=== PATIENT | male | born 1960 | race Caucasian/White ===

== ENCOUNTER → 2018-02-11 | Outpatient (CLI) | payer OTHER ==
[~2018-02-11] MED LIST: FISH OIL; IBUP200T64 PO; MULT-516 PO
[2018-02-11 09:06] LABS: BASOPHILS # (AUTO) 0.05 x10^3/uL (0-0.1); BASOPHILS % (AUTO) 1 % (0-1); EOSINOPHILS % (AUTO) 3 % (1-7); LYMPHOCYTES % (AUTO) 29 % (22-44); MD NO; MEAN CORPUSCULAR HEMOGLOBIN 31.4 pg (27.5-34.5); MEAN CORPUSCULAR HGB CONC 33.9 g/dL (33.2-36.2); MEAN CORPUSCULAR VOLUME 92.5 fL (81-97); MEAN PLATELET VOLUME 7.8 fL (7.4-10.4); MONOCYTES # (AUTO) 0.42 x10^3/uL (0.2-0.8); MONOCYTES % (AUTO) 11 % (2-9); NEUTROPHILS # (AUTO) 2.08 x10^3/uL (1.8-6.8); NEUTROPHILS % (AUTO) 56 % (42-75); PLATELET COUNT 199 x10^3/uL (130-400); RED BLOOD COUNT 5.02 x10^6/uL (4.38-5.82); RED CELL DISTRIBUTION WIDTH 12.6 % (9.4-14.8)
[2018-02-11 09:12] LABS: MICROSCOPIC NOT IND
[2018-02-11 09:17] LABS: CULTURE INDICATED? NO
[2018-02-11 09:19] LABS: ALANINE AMINOTRANSFERASE 42 U/L (12-78); ANION GAP 5 mmol/L (5-15); CALCIUM 8.4 mg/dL (8.5-10.1); CHLORIDE 104 mmol/L (98-107); CREATININE 0.81 mg/dL (0.7-1.3)
[2018-02-11 09:21] LABS: ALKALINE PHOSPHATASE 67 U/L (45-117); BILIRUBIN,TOTAL 0.9 mg/dL (0.2-1.0); TOTAL PROTEIN 7.4 g/dL (6.4-8.2)
== END | disposition home or self-care (01) ==
LOC: STAR 07:51
PROVIDERS: ATTEND Orthopaedic Surgery
DX: Z01.818 Encounter for other preprocedural examination (principal); M16.0 Bilateral primary osteoarthritis of hip; M25.551 Pain in right hip; M25.552 Pain in left hip
CPT/HCPCS: 36415; 80053; 81003; 85025; 87081; 93005

== ENCOUNTER → 2020-11-02 | Outpatient (CLI) | payer OTHER ==
[2020-11-02 15:43] LABS: BASOPHILS % (AUTO) 2 % (0-1); EOSINOPHILS % (AUTO) 3 % (1-7); LYMPHOCYTES % (AUTO) 27 % (22-44); MEAN CORPUSCULAR HEMOGLOBIN 31.9 pg (27.5-34.5); MEAN PLATELET VOLUME 8.3 fL (7.4-10.4); MONOCYTES % (AUTO) 12 % (2-9); NEUTROPHILS % (AUTO) 57 % (42-75); PLATELET COUNT 179 x10^3/uL (130-400); RED BLOOD COUNT 4.83 x10^6/uL (4.38-5.82); RED CELL DISTRIBUTION WIDTH 12.9 % (9.4-14.8)
[2020-11-02 15:49] LABS: ALANINE AMINOTRANSFERASE 35 U/L (12-78); ALBUMIN 3.8 g/dL (3.4-5.0); ANION GAP 6 mmol/L (5-15); CALCIUM 9.1 mg/dL (8.5-10.1); CHLORIDE 107 mmol/L (98-107); CREATININE 0.93 mg/dL (0.7-1.3)
[2020-11-02 15:51] LABS: MD NO
[2020-11-02 15:52] LABS: ALKALINE PHOSPHATASE 69 U/L (45-117); BILIRUBIN,TOTAL 0.4 mg/dL (0.2-1.0)
== END | disposition home or self-care (01) ==
LOC: STAR 13:52
PROVIDERS: ATTEND Orthopaedic Surgery
DX: Z01.810 Encounter for preprocedural cardiovascular examination (principal); Z01.818 Encounter for other preprocedural examination; M25.551 Pain in right hip; M16.11 Unilateral primary osteoarthritis, right hip; R00.1 Bradycardia, unspecified; Z20.822 Contact with and (suspected) exposure to COVID-19
CPT/HCPCS: 80053; 85025; 87081; 87635; 93005

== ENCOUNTER 2020-11-08 05:09 | Day surgery (SDC) | payer OTHER ==
[2020-11-02 15:24] VITALS: BP 117/81
[~2020-11-08] VITALS: Ht 177.8 cm; Wt 71.0 kg
[2020-11-08 06:04] VITALS: BP 117/81
[2020-11-08] MEDS ORDERED: TRANEXAMIC ACID 100 MG/ML, 10ML ONE (06:30)
[2020-11-08] MEDS ORDERED: KETOROLAC 60 MG/2 ML ONE (06:30)
[2020-11-08] MEDS ORDERED: SODIUM CHLORIDE 0.9% 50 ML ONE (06:30)
[2020-11-08] MEDS ORDERED: ROPIvacaine/PF 0.2%, 20 ML ONE (06:30)
[2020-11-08] MEDS ORDERED: LACTATED RINGERS 1,000 ML IV SCH (06:30)
[2020-11-08] MEDS ORDERED: CHLORHEXIDINE 15 ML UDC MM ONE (06:30)
[2020-11-08] MEDS ORDERED: EPINEPHRINE 1 MG/ML, 1ML ONE (06:31)
[2020-11-08] MEDS ORDERED: ACETAMINOPHEN 500 MG TABLET ONE (07:06)
[2020-11-08] MEDS ORDERED: FENTANYL PF 250 MCG/5ML ONE ×2 (07:10→08:44)
[2020-11-08] MEDS ORDERED: MIDAZOLAM 1 MG/ML, 2ML ONE (07:10)
[2020-11-08] MEDS ORDERED: DEXAMETHASONE 4 MG/ML, 5ML ONE (07:14)
[2020-11-08] MEDS ORDERED: SUGAMMADEX 200 MG/2 ML IVPush ONE (08:49)
[2020-11-08] MEDS ORDERED: SUCCINYLCHOLINE 20 MG/ML, 10ML ONE (08:53)
[2020-11-08] MEDS ORDERED: ONDANSETRON 2MG/ML, 2ML ONE (08:53)
[2020-11-08] MEDS ORDERED: NEOSTIGMINE 1 MG/ML, 10ML ONE (08:53)
[2020-11-08] MEDS ORDERED: CEFAZOLIN 1,000 MG ONE (08:53)
[2020-11-08] MEDS ORDERED: ROCURONIUM 10MG/ML,5ML ONE (08:53)
[2020-11-08] MEDS ORDERED: PROPOFOL 10 MG/ML, 20ML ONE (08:53)
[2020-11-08] MEDS ORDERED: GLYCOPYRROLATE 0.2MG/1ML, 5ML ONE (08:53)
[2020-11-08] MEDS ORDERED: FENTANYL PF 100 MCG/2ML ONE (09:19)
[2020-11-08] MEDS ORDERED: DIAZEPAM 5 MG/ML, 2ML IVPush PRN (09:30)
[2020-11-08] MEDS ORDERED: ONDANSETRON 4 MG TABLET PO PRN (09:30)
[2020-11-08] MEDS ORDERED: ALBUTEROL SULFATE 2.5 MG/3 ML NPPB PRN (09:30)
[2020-11-08] MEDS ORDERED: DIPHENHYDRAMINE 50 MG CAPSULE PO PRN (09:30)
[2020-11-08] MEDS ORDERED: HYDROmorphone 2 MG/ML, 1ML IVPush PRN (09:30)
[2020-11-08] MEDS ORDERED: BISACODYL 10 MG SUPP PR PRN (09:30)
[2020-11-08] MEDS ORDERED: METHOCARBAMOL 1,000 MG in DEXTROSE 5% 100 ML IV ONE (09:30)
[2020-11-08] MEDS ORDERED: MEPERIDINE/PF 25MG/0.5ML IVPush PRN (09:30)
[2020-11-08] MEDS ORDERED: DIPHENHYDRAMINE 50 MG/ML, 1ML IVPush PRN (09:30)
[2020-11-08] MEDS ORDERED: ACETAMINOPHEN 325 MG TABLET PO PRN (09:30)
[2020-11-08] MEDS ORDERED: LABETALOL 5MG/ML, 20ML IV PRN (09:30)
[2020-11-08] MEDS: OXYcodone 5 MG/5 ML ORAL.SOL UDC PO PRN ×2 (09:30→13:15)
[2020-11-08] MEDS ORDERED: MAGNESIUM HYDROXIDE 8%, 30ML UDC PO PRN (09:30)
[2020-11-08] MEDS ORDERED: HYDROmorphone 1 MG/ML, 1ML INJ IVPush PRN (09:30)
[2020-11-08] MEDS ORDERED: KETOROLAC 30 MG/1 ML IV PRN (09:30)
[2020-11-08] MEDS ORDERED: SENNA/DOCUSATE TABLET PO PRN (09:30)
[2020-11-08] MEDS ORDERED: SODIUM CHLORIDE 0.9% 1,000 ML IV SCH (09:30)
[2020-11-08] MEDS ORDERED: TRANEXAMIC ACID 1,000 MG in SODIUM CHLORIDE 0.9% 100 ML IVPB ONE (09:30)
[2020-11-08] MEDS ORDERED: POLYETHYLENE GLYCOL 17 GM PACKET PO PRN (09:30)
[2020-11-08] MEDS ORDERED: OXYcodone IR 5MG TABLET PO PRN (09:30)
[2020-11-08] MEDS ORDERED: DIAZEPAM 5 MG TABLET PO PRN (09:30)
[2020-11-08] MEDS ORDERED: ONDANSETRON 2MG/ML, 2ML IVPush PRN (09:30)
[2020-11-08] MEDS: FENTANYL PF 100 MCG/2ML IV PRN ×3 (09:30→10:40)
[2020-11-08] MEDS ORDERED: PROMETHAZINE 25 MG/ML, 1ML IV PRN (09:30)
[2020-11-08] MEDS ORDERED: PROMETHAZINE 25 MG/ML, 1ML IM PRN (09:30)
[2020-11-08] MEDS ORDERED: ACETAMINOPHEN 500 MG TABLET PO SCH (09:30)
[2020-11-08] MEDS ORDERED: hydrALAzine 20 MG/ML, 1ML IV PRN (09:30)
[2020-11-08] MEDS ORDERED: ALUMINUM/MAG/SIMETHICONE 30 ML UDC PO PRN (09:30)
[2020-11-08] MEDS ORDERED: PROMETHAZINE 12.5 MG SUPP PR PRN (09:30)
[2020-11-08] MEDS ORDERED: HYDROmorphone 2MG TABLET PO PRN (09:30)
[2020-11-08] MEDS ORDERED: PSYLLIUM PACKET PO PRN (09:30)
[2020-11-08] MEDS ORDERED: MEPERIDINE/PF 25MG/ML,1ML ONE (09:32)
[2020-11-08] MEDS ORDERED: OXYcodone 5 MG/5 ML ORAL.SOL UDC ONE (09:33)
[2020-11-08] MEDS ORDERED: DEXAMETHASONE 4 MG/ML, 1ML IVPush ONE (14:00)
[2020-11-08] MEDS ORDERED: KETOROLAC 30 MG/1 ML IV SCH (14:30)
[2020-11-08] MEDS ORDERED: TAMSULOSIN 0.4 MG CAP.ER.24H PO ONE (15:00)
[2020-11-08] MEDS ORDERED: CEFAZOLIN PMX 1GM/50ML 50 ML IVPB SCH (17:00)
[2020-11-08] MEDS ORDERED: ASPIRIN 81 MG TABLET EC PO SCH (21:00)
[2020-11-08] MEDS ORDERED: DOCUSATE 100 MG CAPSULE PO SCH (21:00)
== END 2020-11-08 09:20 | disposition home or self-care (01) ==
LOC: OUT 05:09 → ORIP 11-09 09:52 → UNDOADMOB 11-09 09:52 → ORIP 11-16 21:08
PROVIDERS: ATTEND Orthopaedic Surgery
DX: M16.11 Unilateral primary osteoarthritis, right hip (principal); Z79.899 Other long term (current) drug therapy; Z72.89 Other problems related to lifestyle
CPT/HCPCS: 27130; 36415; 72170; 86850; 86900; 97162; C1713; C1776; J0171; J0330; J0690; J1100; J1885; J2175; J2250; J2405; J2704; J2710; J2795; J2800; J3010; J7120